=== PATIENT | male | born 1990 | race Two or more races ===

== ENCOUNTER 2016-06-17 11:16 | Emergency (ER) | payer OTHER ==
[2016-06-17] MEDS ORDERED: DOCUSATE SODIUM 100 MG CAPSULE RT_EAR ONE (12:01)
--- NOTE | 2016-06-17 12:34 | ER Document Report ---
ED ENT - General Chief Complaint: Ear Pain Stated Complaint: RIGHT EAR PAIN Time seen by provider: 12:00 Mode of Arrival: Ambulatory Information source: Patient Notes: 25-year-old male presents to ED for complaint of right ear pain with decreased hearing to the right ear for week. TRAVEL OUTSIDE OF THE [place] IN LAST 30 DAYS: No - HPI Patient complains to provider of: Ear problem Onset: Last week Onset/Duration: Gradual Quality of pain: Dull Severity: Moderate Pain Level: 4 Location of pain: Ears - Right Associated symptoms: Ear pain - Decreased hearing in this ear Similar symptoms previously: No Recently seen / treated by doctor: No Past Medical History - General Information source: Patient - Social History Smoking Status: Former Smoker Cigarette use (# per day): No Chew tobacco use (# tins/day): No Smoking Education Provided: No Frequency of alcohol use: Occasional Drug Abuse: None Occupation: [employer] Lives with: Alone Family History: None. denies: Arthritis, CAD, COPD, CVA, DM, Hyperlipidemia, Hypertension, Malignancy, Thyroid Disfunction Patient has suicidal ideation: No Patient has homicidal ideation: No - Medical History Medical History: Negative - Past Medical History Cardiac Medical History: Reports: None Pulmonary Medical History: Reports: None EENT Medical History: Reports: None Neurological Medical History: Reports: None Endocrine Medical History: Reports: None Renal/ Medical History: Reports: None Malignancy Medical History: Reports None GI Medical History: Reports: None Musculoskeltal Medical History: Reports Hx Arthritis, Reports Hx Musculoskeletal Deformity, Reports Hx Musculoskeletal Trauma Skin Medical History: Reports None Psychiatric Medical History: Reports: Hx Anxiety, Hx Attention Deficit Hyperactivity Disorder, Hx Depression, Hx Post Traumatic Stress Disorder, Other - Impulse control disorder Traumatic Medical History: Reports: Hx Fractures - thumbs toe and ribs Infectious Medical History: Reports: None Surgical Hx: Negative Past Surgical History: Reports: None Review of Systems - Review of Systems Constitutional: No symptoms reported EENT: Ear pain - Decreased hearing in this right ear Cardiovascular: No symptoms reported Respiratory: No symptoms reported Gastrointestinal: No symptoms reported Genitourinary: No symptoms reported Male Genitourinary: No symptoms reported Musculoskeletal: No symptoms reported Skin: No symptoms reported Hematologic/Lymphatic: No symptoms reported Neurological/Psychological: No symptoms reported Physical Exam - Vital signs Vitals: Temp Pulse Resp BP Pulse Ox 98.0 F 64 16 120/82 99 06/17/16 11:35 06/17/16 11:35 06/17/16 11:35 06/17/16 11:35 06/17/16 11:35 Interpretation: Normal - General General appearance: Appears well, Alert - HEENT Head: Normocephalic, Atraumatic Eyes: Normal Pupils: PERRL Ears: Normal External canal: Cerumen impaction Tympanic membrane: Normal Sinus: Normal Nasal: Normal Mouth/Lips: Normal Mucous membranes: Normal Pharynx: Normal Neck: Normal - Respiratory Respiratory status: No respiratory distress Chest status: Nontender Breath sounds: Normal Chest palpation: Normal - Cardiovascular Rhythm: Regular Heart sounds: Normal auscultation Murmur: No - Abdominal Inspection: Normal Distension: No distension Bowel sounds: Normal Tenderness: Nontender Organomegaly: No organomegaly - Back Back: Normal, Nontender - Extremities General upper extremity: Normal inspection, Nontender, Normal color, Normal ROM , Normal temperature General lower extremity: Normal inspection, Nontender, Normal color, Normal ROM , Normal temperature, Normal weight bearing. No: Carli's sign - Neurological Neuro grossly intact: Yes Cognition: Normal Orientation: AAOx4 [place] Coma Scale Eye Opening: Spontaneous [place] Coma Scale Verbal: Oriented [place] Coma Scale Motor: Obeys Commands Sand[place] Coma Scale Total: 15 Speech: Normal Motor strength normal: LUE, RUE, LLE, RLE Sensory: Normal - Psychological Associated symptoms: Normal affect, Normal mood - Skin Skin Temperature: Warm Skin Moisture: Dry Skin Color: Normal Course - Re-evaluation Re-evalutation: 06/17/16 13:06 Cerumen impaction was removed from right ear. Pain was relieved patient states his hearing is back to normal. Patient was discharged home with instructions for care of wax to his ears. Patient to follow-up with his primary doctor in the ENT if necessary. - Vital Signs Vital signs: Temp Pulse Resp BP Pulse Ox 98.0 F 64 16 120/82 99 06/17/16 11:35 06/17/16 11:35 06/17/16 11:35 06/17/16 11:35 06/17/16 11:35 Discharge - Discharge Clinical Impression: Cerumen impaction Qualifiers: Laterality: right Qualified Code(s): H61.21 - Impacted cerumen, right ear Condition: Stable Disposition: HOME, SELF-CARE Instructions: Family Physicians / Practices Additional Instructions: Cerumen Impaction The physician found a severe buildup of earwax in your ear canal, called a cerumen impaction. A large plug of wax can cause earache, decreased hearing, or itching. It can even lead to infection of the outer ear. An impaction of earwax can be removed by the physician using special instruments, or can be irrigated out using a stream of water (often a little of both is required). Some less severe impactions are removed using ear drops that dissolve wax. In the future, don't get soap in your ear canal. Soap doesn't remove wax - - it simply hardens it in place. Don't use cotton swabs. These just push the wax into large clumps, where it doesn't flow out normally. Dust and smoke also contribute to wax buildup. Earwax softening drops are available without prescription, and can be used periodically. Contact the doctor if you develop decreased hearing, earache, drainage from the ear, or severe headache. Using one half warm water and one half peroxide with the bulb syringe that she will provided with will also remove any wax from your ear. The wax has been removed from your ear today and is stated you hearing is much better as well as your pain. FOLLOW-UP CARE: If you have been referred to a physician for follow-up care, call the physician s office for an appointment as you were instructed or within the next two days. If you experience worsening or a significant change in your symptoms, notify the physician immediately or return to the Emergency Department at any time for re-evaluation. Please complete the patient's satisfaction survey if you get one and return. If you do not receive a survey you can go to [facility] website [email or web address] and place your comments about your very good care. Thank you very much. It was a pleasure be in your medical provider today. Forms: Return to Work
[2016-06-17 13:09] VITALS: BP 120/80
== END 2016-06-17 13:10 | disposition home or self-care (01) ==
LOC: ER 11:16
DX: H61.21 Impacted cerumen, right ear (principal); H92.01 Otalgia, right ear; Z87.891 Personal history of nicotine dependence
CPT/HCPCS: 99282

== ENCOUNTER 2016-08-06 20:15 | Emergency (ER) | payer OTHER ==
[2016-08-06] MEDS ORDERED: HYDROCODONE/ACETAMINOPHEN 5-325 MG 6 TAB/DSPK PO PRN (23:23)
--- NOTE | 2016-08-06 23:26 | ER Document Report ---
HPI - HPI Patient complains to provider of: bite on leg, pain Pain Level: 5 Context: Patient is a 26-year-old male that comes emergency department for chief complaint of pain to his right outer ankle area, he states he was standing in the grass and shortness yesterday when he felt a sharp bite, he states that the grass was actually pretty tall and he did not see anything that bit him. He states that since that time there has been a bruise to the area and swelling around the area. Swelling has stopped but he states the area still hurts. Swelling has actually gone down slightly. He is up-to-date on his tetanus. He denies any other current symptoms. - DERM Skin Color: Normal, [place] Past Medical History - General Information source: Patient - Social History Smoking Status: Never Smoker Drug Abuse: None Lives with: Family Family History: None. denies: Arthritis, CAD, COPD, CVA, DM, Hyperlipidemia, Hypertension, Malignancy, Thyroid Disfunction Patient has suicidal ideation: No Patient has homicidal ideation: No Renal/ Medical History: Denies: Hx Peritoneal Dialysis Musculoskeltal Medical History: Reports Hx Arthritis, Reports Hx Musculoskeletal Deformity, Reports Hx Musculoskeletal Trauma Psychiatric Medical History: Reports: Hx Anxiety, Hx Attention Deficit Hyperactivity Disorder, Hx Depression, Hx Post Traumatic Stress Disorder Traumatic Medical History: Reports: Hx Fractures - thumbs toe and ribs - Immunizations Hx Diphtheria, Pertussis, Tetanus Vaccination: Yes Vertical Provider Document - CONSTITUTIONAL General Appearance: WD/WN, No Apparent Distress - INFECTION CONTROL TRAVEL OUTSIDE OF THE [place] IN LAST 30 DAYS: No - HEENT HEENT: Atraumatic, Normocephalic - NECK Neck: Normal Inspection - RESPIRATORY Respiratory: Breath Sounds Normal, No Respiratory Distress O2 Sat by Pulse Oximetry: 100 - CARDIOVASCULAR Cardiovascular: Regular Rate, Regular Rhythm - GI/ABDOMEN Gastrointestinal: Abdomen Soft, Abdomen Non-Tender - MUSCULOSKELETAL/EXTREMETIES Musculoskeletal/Extremeties: MAEW, FROM, Tender - The right lateral aspect of the distal tibial area has a small bruise, there is surrounding soft tissue swelling, there are some excoriations over the area, no notable erythema, no induration, no fluctuance, only mildly generalized tenderness, no severe pain, normal distal pulses and sensation, normal lower extremity exam otherwise. Course - Re-evaluation Re-evalutation: Based on patient's and his examination I actually suspect a mild envenomation from a copperhead snake. This was over 24 hours ago. Swelling has Enio started to decline. No indication for [employer]Fab at this time. Discussed this with patient in detail. Discussed monitoring and return precautions in detail. Patient asking for something for pain, he will be provided with this. Patient states understanding and agreement with plan. - Vital Signs Vital signs: Temp Pulse Resp BP Pulse Ox 98.3 F 78 18 112/80 100 08/06/16 20:55 08/06/16 20:55 08/06/16 20:55 08/06/16 20:55 08/06/16 20:55 Discharge - Discharge Clinical Impression: Leg swelling Condition: Stable Disposition: HOME, SELF-CARE Additional Instructions: Examination is consistent with likely snakebite, however the swelling has stopped, the area does not show evidence of infection, this appears to be in mild envenomation. Most likely from a copperhead. Take pain medication prescribed if needed, elevate your leg, monitor for any signs of worsening symptoms such as developing redness, spreading redness, increased swelling, fever, or any other concerning symptoms, return immediately for any concerning symptoms. Prescriptions: Morphine Sulfate [Morphine Ir 15 Mg Tablet] 15 mg PO Q4HP PRN #12 tablet PRN Reason: Forms: Return to Work
[2016-08-06 23:45] VITALS: BP 109/68
== END 2016-08-06 23:44 | disposition home or self-care (01) ==
LOC: ER 20:15
DX: M25.571 Pain in right ankle and joints of right foot (principal); M79.89 Other specified soft tissue disorders
CPT/HCPCS: 99281

== ENCOUNTER 2018-02-04 02:12 | Emergency (ER) | payer OTHER ==
[2018-02-04] MEDS ORDERED: DIPH/PERTUSS(ACELL)/TETANUS VAC/PF 0.5 ML SYR (>=10YO) IM ONE (03:23)
[2018-02-04] MEDS ORDERED: AMOXICILLIN TR/POT CLAVULANATE 500-125 MG TAB PO ONE (03:24)
--- NOTE | 2018-02-04 03:40 | ER Document Report ---
ED Animal Bite - General Chief Complaint: Cat Bite Stated Complaint: CAT BITE Time Seen by Provider: 02/04/18 03:23 Notes: Patient is a 27-year-old male presents to the emergency department chief complaint cat bite to his left hand left index and middle finger. Patient states there are a group of fairly kittens by his workplace. States they put food out for the kittens all the time. States this morning the kitten was eating when he went to pick the could not up and he was bitten on the left hand. Patient states he has held and played with multiple of the other kittens from this litter with no problems. Past medical history: Degenerative disc disease Medications: Celebrex, Cymbalta, tramadol, Ultram, gabapentin, Topamax Allergies: None TRAVEL OUTSIDE OF THE [place] IN LAST 30 DAYS: No - Related Data Allergies/Adverse Reactions: No Known Allergies Allergy (Verified 08/06/16 23:25) Past Medical History - General Information source: Patient - Social History Smoking Status: Unknown if Ever Smoked Family History: None. denies: Arthritis, CAD, COPD, CVA, DM, Hyperlipidemia, Hypertension, Malignancy, Thyroid Disfunction Renal/ Medical History: Denies: Hx Peritoneal Dialysis Musculoskeletal Medical History: Reports Hx Arthritis, Reports Hx Musculoskeletal Deformity, Reports Hx Musculoskeletal Trauma Psychiatric Medical History: Reports: Hx Anxiety, Hx Attention Deficit Hyperactivity Disorder, Hx Depression, Hx Post Traumatic Stress Disorder Traumatic Medical History: Reports: Hx Fractures - thumbs toe and ribs - Immunizations Hx Diphtheria, Pertussis, Tetanus Vaccination: Yes Review of Systems - Review of Systems Constitutional: No symptoms reported EENT: No symptoms reported Cardiovascular: No symptoms reported Respiratory: No symptoms reported Gastrointestinal: No symptoms reported Genitourinary: No symptoms reported Male Genitourinary: No symptoms reported Musculoskeletal: See HPI Skin: See HPI Hematologic/Lymphatic: No symptoms reported Neurological/Psychological: No symptoms reported Physical Exam - Vital signs Vitals: Temp Pulse Resp BP Pulse Ox 98.6 F 71 16 124/76 97 02/04/18 02:12 02/04/18 02:12 02/04/18 02:12 02/04/18 02:12 02/04/18 02:12 - Notes Notes: GENERAL: Alert, interacts well. No acute distress. HEAD: Normocephalic, atraumatic. EYES: Pupils equal, round, and reactive to light. Extraocular movements intact. ENT: Oral mucosa moist, tongue midline. NECK: Full range of motion. Supple. Trachea midline. LUNGS: Clear to auscultation bilaterally, no wheezes, rales, or rhonchi. No respiratory distress. HEART: Regular rate and rhythm. No murmur ABDOMEN: Soft, non-tender. Non-distended. Bowel sounds present in all 4 quadrants. EXTREMITIES: Moves all 4 extremities spontaneously. No edema, normal radial and dorsalis pedis pulses bilaterally. No cyanosis. BACK: no cervical, thoracic, lumbar midline tenderness. No saddle anesthesia, normal distal neurovascular exam. NEUROLOGICAL: Alert and oriented x3. Normal speech. cranial nerves II through XII grossly intact PSYCH: Normal affect, normal mood. SKIN: Warm, dry, normal turgor. Bilateral hands stained with multiple calluses. 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 There are 3 very small puncture wounds noted to the proximal aspect of the left index finger and one puncture wound noted to the left proximal middle finger. Patient able to abduct and adduct against resistance all fingers on the left hand. Patient also able to flex and extend fingers against resistance. Course - Re-evaluation Re-evalutation: 02/04/18 03:40 Wound was clean with Shur-Clens and saline in the emergency room. Antibiotics given and tetanus updated. Discussed with patient rabies prophylaxis. Discussed patient has 7 days to either quarantine the cat or return to the emergency room for prophylaxis. Patient states the cats are always near his garage and he would rather try to quarantine the cat rather than undergo rabies prophylaxis. Discussed at length with patient importance of quarantine the cat with animal control or returning to an emergency room for rabies prophylaxis as there is no treatment for rabies. Patient voices understanding and he wishes to decline rabies prophylaxis at this time. - Vital Signs Vital signs: Temp Pulse Resp BP Pulse Ox 98.6 F 71 16 124/76 97 02/04/18 02:12 02/04/18 02:12 02/04/18 02:12 02/04/18 02:12 02/04/18 02:12 Discharge - Discharge Clinical Impression: Cat bite of finger Qualifiers: Encounter type: initial encounter Qualified Code(s): S61.259A - Open bite of unspecified finger without damage to nail, initial encounter; W55.01XA - Bitten by cat, initial encounter Condition: Stable Disposition: HOME, SELF-CARE Instructions: Animal Bites ([facility]) Additional Instructions: As we discussed you have been seen and treated in the emergency department for a cat bite. Please take antibiotics as prescribed. Please keep wound clean and dry. Also as we discussed you need to quarantine the cat for rabies observation with the help of animal control or return to any emergency room within 7 days to get rabies prophylaxis shots. Please return to the emergency room for any signs of infection, swelling, redness, discharge from your wound. Please also return to the emergency room for any other concerning symptoms. Prescriptions: Amox Tr/Potassium Clavulanate [Augmentin 875-125 Tablet] 1 tab PO BID 10 Days tablet
[2018-02-04 04:09] VITALS: BP 108/77
== END 2018-02-04 04:09 | disposition home or self-care (01) ==
LOC: ER 02:12
DX: S61.452A Open bite of left hand, initial encounter (principal); S61.251A Open bite of left index finger without damage to nail, initial encounter; S61.253A Open bite of left middle finger without damage to nail, initial encounter; W55.01XA Bitten by cat, initial encounter; Z23 Encounter for immunization
CPT/HCPCS: 90471; 90715; 99283